=== PATIENT | female | born 1990 | race Caucasian/White ===

== ENCOUNTER 2018-07-27 06:19 | Observation (INO) | payer OTHER ==
[2018-07-27] MEDS ORDERED: LIDOCAINE 1% (MDV) 20 ML INJ (07:00)
[2018-07-27] MEDS ORDERED: ROPIVACAINE 0.5 % 30 ML VIAL ×2 (07:00→07:43)
[2018-07-27] MEDS ORDERED: SUCCINYLCHOLINE CHLORIDE 100 MG/5 ML SYG IV (07:00)
[2018-07-27] MEDS ORDERED: POLYMYXIN/BACITRACIN 1L IRRIG (07:00)
[2018-07-27] MEDS ORDERED: NEOMYC/POLYMYX/BACIT 30 GM OINT (07:00)
[2018-07-27] MEDS ORDERED: MIDAZOLAM 1 MG/ML 2 ML INJ (07:43)
[2018-07-27] MEDS ORDERED: ROPIVACAINE 0.2% 20 ML VIAL (08:02)
[2018-07-27] MEDS ORDERED: FAMOTIDINE 20 MG INJ (08:31)
[2018-07-27] MEDS ORDERED: DEXAMETHASONE 4 MG/ML 1 ML INJ (08:31)
[2018-07-27] MEDS ORDERED: ROCURONIUM 50 MG INJ ×2 (08:31→09:52)
[2018-07-27] MEDS ORDERED: ONDANSETRON 4 MG INJ (08:31)
[2018-07-27] MEDS ORDERED: CEFAZOLIN 1 GM INJ ×2 (08:57→12:36)
[2018-07-27] MEDS: POLYMYXIN/BACITRACIN 1L IRRIG IRR (09:08)
[2018-07-27] MEDS ORDERED: LACTATED RINGER'S 1,000 ML IV (09:30)
[2018-07-27] MEDS ORDERED: HYDROmorphONE 2 MG/ML SYG (11:22)
[2018-07-27] MEDS ORDERED: SUGAMMADEX SODIUM 200 MG/2 ML VIAL IV (11:23)
[2018-07-27] MEDS ORDERED: ONDANSETRON 4 MG INJ IV (11:30)
[2018-07-27] MEDS ORDERED: FENTAnyl 50 MCG/ML VIAL IV ×2 (11:30)
[2018-07-27] MEDS ORDERED: DIPHENHYDRAMINE 50 MG INJ IV (11:30)
[2018-07-27] MEDS ORDERED: OXYCODONE/ACETAMINOPHEN (5/325) TAB PO ×2 (11:30)
[2018-07-27] MEDS ORDERED: MEPERIDINE 25 MG INJ IV (11:30)
[2018-07-27] MEDS ORDERED: HYDROmorphONE 1 MG/5 ML IV SYRINGE IV (11:30)
[2018-07-27] MEDS ORDERED: PROCHLORPERAZINE 10 MG INJ IV (11:30)
[2018-07-27] MEDS: HYDROmorphONE 1 MG/5 ML IV SYRINGE IV ×2 (12:25→12:32)
[2018-07-27] MEDS: PREGABALIN 75 MG CAP PO ×2 (12:30→21:33)
[2018-07-27] MEDS: oxyCODONE 5 MG TAB PO ×3 (12:30→21:36)
[2018-07-27] MEDS ORDERED: CEFAZOLIN 1 GM INJ IV (12:30)
[2018-07-27] MEDS ORDERED: ACETAMINOPHEN 325 MG TAB PO (12:30)
[2018-07-27] MEDS: FENTAnyl 50 MCG/ML VIAL IV ×2 (12:32→12:39)
[2018-07-27] MEDS ORDERED: HYDROmorphONE 2 MG/ML SYG IV (13:30)
[2018-07-27] MEDS: ONDANSETRON 4 MG INJ IV ×3 (13:41→22:42)
[2018-07-27] MEDS: HYDROmorphONE 2 MG/ML SYG IV ×5 (13:41→22:34)
[2018-07-27] MEDS: CEFAZOLIN 2 GM/50 ML (PMX) 50 ML IVPB ×2 (15:51→22:34)
[2018-07-28] MEDS: HYDROmorphONE 2 MG/ML SYG IV ×11 (00:39→23:21)
[2018-07-28] MEDS: oxyCODONE 5 MG TAB PO ×5 (01:45→15:35)
[2018-07-28] MEDS: DIPHENHYDRAMINE 25 MG CAP PO ×2 (01:48→06:56)
[2018-07-28] MEDS: ONDANSETRON 4 MG INJ IV (02:37)
[2018-07-28] MEDS: CEFAZOLIN 2 GM/50 ML (PMX) 50 ML IVPB ×3 (06:57→21:13)
[2018-07-28] MEDS: PREGABALIN 75 MG CAP PO ×2 (08:17→21:12)
[2018-07-28] MEDS: oxyCODONE (CR) 10 MG TAB [oxyCONTIN] PO ×2 (14:01→19:59)
[2018-07-28] MEDS: RIVAROXABAN 10 MG TABLET PO (17:58)
[2018-07-29] MEDS: oxyCODONE 5 MG TAB PO ×5 (03:03→19:34)
[2018-07-29] MEDS: HYDROmorphONE 2 MG/ML SYG IV ×2 (03:09→06:02)
[2018-07-29] MEDS: CEFAZOLIN 2 GM/50 ML (PMX) 50 ML IVPB (05:48)
[2018-07-29] MEDS: PREGABALIN 75 MG CAP PO (09:14)
[2018-07-29] MEDS: oxyCODONE (CR) 10 MG TAB [oxyCONTIN] PO (09:14)
[2018-07-29] MEDS: RIVAROXABAN 10 MG TABLET PO (17:28)
== END 2018-07-29 20:05 | disposition home or self-care (01) ==
LOC: SDS 06:19 → REC 12:13 → MS1 13:54
DX: S83.232D Complex tear of medial meniscus, current injury, left knee, subsequent encounter (principal); M21.162 Varus deformity, not elsewhere classified, left knee; M94.262 Chondromalacia, left knee; X58.XXXD Exposure to other specified factors, subsequent encounter
CPT/HCPCS: 27705; 73562; 82306; 97116; 97161; 97530; 99217